=== PATIENT | female | born 1940 | race Caucasian/White ===

== ENCOUNTER → 2021-03-01 | Outpatient (CLI) | payer MEDICARE, OTHER | LOC: KOH-I 10:52 | DX: M79.672 Pain in left foot (principal); M79.671 Pain in right foot; M19.072 Primary osteoarthritis, left ankle and foot; M19.071 Primary osteoarthritis, right ankle and foot | CPT/HCPCS: 73630 ==

== ENCOUNTER → 2021-03-22 | Outpatient (CLI) | payer MEDICARE, OTHER ==
[~2021-03-22] MED LIST: ATIVAN0.5 MG PO; CBD OIL SL; CYMBALTA20 MG PO; DAILY VALUE1 EACH PO; DORZOLAMIDE-TIM10 ML EYEBOTH; GLUCOSAMINE PO; HYDRALAZINE HCL50 MG PO; ISOSORBIDE MONO30 MG PO; LATANOPROST 0.7.5 ML EYEBOTH; LIPITOR20 MG PO; LOW DOSE ASPIRI81 MG PO; MAGNESIUM500 MG PO; OMEGA XL PO; SINGULAIR10 MG PO; TYLENOL EXTRA500 MG PO; VALSARTAN-HCTZ1 EAC3 PO; VITAMIN B12 PO; VITAMIN D3125 MC1 PO; ZINC50 M2 PO; [UNRECOGNIZED DRUG - OTHER] EYEBOTH; [UNRECOGNIZED DRUG - OTHER] PO; [UNRECOGNIZED DRUG - OTHER] PO
[2021-03-22 12:41] LABS: BUN/CREATININE RATIO 27 (0-10)
== END ==
LOC: OPSV2 10:00
PROVIDERS: Orthopaedic Surgery
DX: Z01.818 Encounter for other preprocedural examination (principal); M65.342 Trigger finger, left ring finger; R00.1 Bradycardia, unspecified
CPT/HCPCS: 71046; 80048; 93005

== ENCOUNTER → 2021-03-28 | Day surgery (SDC) | payer MEDICARE, OTHER ==
[~2021-03-28] VITALS: Ht 167.6 cm; Wt 118.8 kg
== END | disposition home or self-care (01) ==
LOC: OR 05:17
DX: M65.342 Trigger finger, left ring finger (principal); I10 Essential (primary) hypertension; E78.5 Hyperlipidemia, unspecified; Z88.5 Allergy status to narcotic agent; Z88.8 Allergy status to other drugs, medicaments and biological substances; Z79.82 Long term (current) use of aspirin; Z79.891 Long term (current) use of opiate analgesic; Z79.899 Other long term (current) drug therapy; Z90.49 Acquired absence of other specified parts of digestive tract
CPT/HCPCS: 93005; J0690; J1100; J1885; J2001; J2370; J2405; J2704; J3010; J7120

== ENCOUNTER → 2021-04-08 | Outpatient (CLI) | payer MEDICARE, OTHER | LOC: MAMO 08:00 | DX: Z12.31 Encounter for screening mammogram for malignant neoplasm of breast (principal) | CPT/HCPCS: 77063; 77067 ==

== ENCOUNTER 2021-11-19 20:26 | Emergency (ER) | payer MEDICARE, OTHER | END 2021-11-19 21:22 | disposition home or self-care (01) | LOC: ER1 20:26 | DX: H11.32 Conjunctival hemorrhage, left eye (principal); I10 Essential (primary) hypertension; Z90.710 Acquired absence of both cervix and uterus; Z88.5 Allergy status to narcotic agent; Z88.8 Allergy status to other drugs, medicaments and biological substances | CPT/HCPCS: 99282 ==

== ENCOUNTER → 2022-01-25 | Outpatient (CLI) | payer MEDICARE, OTHER | LOC: HEART 5 09:00 | DX: I10 Essential (primary) hypertension (principal); I08.1 Rheumatic disorders of both mitral and tricuspid valves | CPT/HCPCS: 93306 ==